=== PATIENT | male | born 1945 | race Caucasian/White ===

== ENCOUNTER 2022-06-20 04:18 | Emergency (ER) | payer OTHER ==
[~2022-06-20] VITALS: Ht 170.2 cm; Wt 108.9 kg
--- NOTE | 2022-06-20 04:20 | NUR ---
PT [facility] BLS. TAKEN TO BED 6
[2022-06-20 04:21] VITALS: BP 157/71
--- NOTE | 2022-06-20 04:38 | NUR ---
PT CARLOS LEFT CONTACT INFORMATION
[2022-06-20] MEDS ORDERED: ACETAMINOPHEN EXTRA STRENGTH 500 MG TAB PO ONE (05:15)
--- NOTE | 2022-06-20 05:37 | NUR ---
PT RETURN FROM CT
--- NOTE | 2022-06-20 07:24 | NUR ---
Pt report given to CHARLES. Transfer of care at this time.
--- NOTE | 2022-06-20 07:25 | NUR ---
REPORT RECEIVED FROM CESAR OLSON. ASSUMED CARE AT THIS TIME
--- NOTE | 2022-06-20 08:09 | NUR ---
call received from pt . updated on pt status
--- NOTE | 2022-06-20 08:44 | NUR ---
LUANN APPLIED STERI-STRIPS TO PT'S WOUND
[2022-06-20 09:10] LABS: ALBUMIN 3.1 g/dL (3.4-5.0); ANION GAP 14.8 (8-16); ASPARTATE AMINOTRANSFERASE 12 U/L (15-37); CARBON DIOXIDE 28.5 mmol/L (21-32); CHLORIDE 105 mmol/L (98-107); CREATININE 3.9 mg/dL (0.6-1.3); GLUCOSE 241 mg/dL (74-106); POTASSIUM 5.3 mmol/L (3.5-5.1); SODIUM SERUM 143 mmol/L (136-145); TOTAL BILIRUBIN 0.3 mg/dL (0.0-1.0)
[2022-06-20 09:14] LABS: UREA NITROGEN, BLOOD 62 mg/dL (7-18)
[2022-06-20 09:55] LABS: BASOPHILS # (AUTO) 0.1 K/uL (0.00-0.22); BASOPHILS % (AUTO) 0.8 % (0.0-2.0); EOSINOPHILS # (AUTO) 0.4 K/uL (0-0.4); EOSINOPHILS % (AUTO) 3.4 % (0.0-4.0); HEMATOCRIT 31.3 % (36-52); HEMOGLOBIN 10.3 g/dL (12.0-18.0); LYMPHOCYTES # (AUTO) 1.8 K/uL (2.0-11.5); LYMPHOCYTES % (AUTO) 16.7 % (20.5-51.1); MEAN CORPUSCULAR HEMOGLOBIN 29 pg (27-31); MEAN CORPUSCULAR HGB CONC 33 g/dL (33-37); MEAN CORPUSCULAR VOLUME 88.1 fL (80-94); MONOCYTES # (AUTO) 0.7 K/uL (0.8-1.0); MONOCYTES % (AUTO) 6.8 % (1.7-9.3); NEUTROPHILS # (AUTO) 7.8 K/uL (1.8-7.7); NEUTROPHILS % (AUTO) 72.3 % (42.2-75.2); PLATELET COUNT (AUTO) 243 K/uL (140-450); RED BLOOD CELL COUNT(AUTO) 3.55 MIL/uL (4.20-6.10); RED CELL DISTRIBUTION WIDTH 13.9 % (11.6-13.7); WHITE BLOOD COUNT (AUTO) 10.8 K/uL (4.8-10.8)
--- NOTE | 2022-06-20 11:17 | NUR ---
PT TAKEN TO CT VIA CATHERINE
--- NOTE | 2022-06-20 11:33 | NUR ---
PT BROUGHT BACK VIA CATHERINE
[2022-06-20] MEDS ORDERED: SODIUM POLYSTYRENE 15 GM/60 ML UDBTL PO ONE (12:25)
[2022-06-20 12:52] LABS: PROTHROMBIN TIME 10.7 secs (10.8-13.4)
[2022-06-20 13:07] VITALS: BP 167/65
[2022-06-20] MEDS ORDERED: [UNRECOGNIZED DRUG - CODE] (13:09)
[2022-06-20] MEDS ORDERED: SODIUM POLYSTYRENE 15 GM/60 ML UDBTL ONE (13:44)
--- NOTE | 2022-06-20 14:00 | NUR ---
IV removed, catheter intact and site benign. Applied folded 4x4 gauze and tape to stop bleeding.
--- NOTE | 2022-06-20 14:04 | NUR ---
Patient discharged with v/s stable. Written and verbal after care instructions FOR FALL PREVENTION ANS HYPERKALMEIA given and explained. Patient alert, oriented and verbalized understanding of instructions. Wheel Chair Assisted with to car. All questions addressed prior to discharge. ID band removed. Patient advised to follow up with PMD. Rx of KALEXATE given. . Opportunity to ask questions provided and answered.
== END 2022-06-20 14:04 ==
LOC: MED 04:18
DX: S09.90XA Unspecified injury of head, initial encounter (principal); Z20.822 Contact with and (suspected) exposure to COVID-19; I10 Essential (primary) hypertension; E11.9 Type 2 diabetes mellitus without complications; N18.9 Chronic kidney disease, unspecified; F03.90 Unspecified dementia, unspecified severity, without behavioral disturbance, psychotic disturbance, mood disturbance, and anxiety; Z79.4 Long term (current) use of insulin; Z79.899 Other long term (current) drug therapy; W18.30XA Fall on same level, unspecified, initial encounter; Y93.89 Activity, other specified; Y92.89 Other specified places as the place of occurrence of the external cause; Y99.8 Other external cause status
CPT/HCPCS: 36415; 70450; 70486; 80053; 85025; 85610; 93005; 99285